=== PATIENT | male | born 1970 | race Caucasian/White ===

== ENCOUNTER → 2017-04-29 | Outpatient (CLI) | payer OTHER | LOC: FIMAGING 19:05 | PROVIDERS: ATTEND Family Medicine ==

== ENCOUNTER 2017-07-09 14:03 | Day surgery (SDC) | payer OTHER ==
[2017-07-09] MEDS ORDERED: LIDOCAINE 1% 300 MG/30 ML SDV ONE (15:05)
[2017-07-09] MEDS ORDERED: TRIAMCINOLONE ACETONIDE 200 MG/5 ML MDV IM ONE (15:05)
[2017-07-09] MEDS ORDERED: IOPAMIDOL (ISOVUE-M 300) 15 ML VIAL ONE (15:05)
[2017-07-09] MEDS ORDERED: BUPIVACAINE 0.5% 30 ML SDV ONE (15:06)
== END 2017-07-09 15:50 | disposition home or self-care (01) ==
LOC: FIMAGING 14:03
PROVIDERS: ATTEND Physical Medicine & Rehabilitation
PROC: 3E0S3BZ Introduction of Anesthetic Agent into Epidural Space, Percutaneous Approach (ICD-10-PCS; principal; 2017-07-09)
PROC: 3E0S33Z Introduction of Anti-inflammatory into Epidural Space, Percutaneous Approach (ICD-10-PCS; principal; 2017-07-09)
DX: M54.16 Radiculopathy, lumbar region (principal); M51.37 Other intervertebral disc degeneration, lumbosacral region; R55 Syncope and collapse
CPT/HCPCS: J3301; Q9967

== ENCOUNTER 2017-10-16 14:10 | Emergency (ER) | payer OTHER ==
--- NOTE | 2017-10-16 14:26 | CPEKG ---
Heart Rate: 53 RR Interval: 1132 P-R Interval: 204 QRSD Interval: 102 QT Interval: 424 QTC Interval: 399 P [place]: 44 QRS [place]: 31 T Wave [place]: 31 EKG Severity - NORMAL ECG - EKG Impression: SINUS RHYTHM Electronically Signed By: Jeanie Yeboah 16-Oct-2017 23:11:58
[2017-10-16] MEDS ORDERED: NS 1,000 ML IV ONE (14:49)
[2017-10-16] MEDS ORDERED: MECLIZINE HCL 25 MG TAB PO ONE (14:50)
[2017-10-16 14:56] LABS: PLATELET COUNT 225 10^3/uL (150-400)
[2017-10-16 15:46] VITALS: PULSE 50
--- NOTE | 2017-10-16 15:59 | EDPHY ---
HPI/HX/ROS/PE/MDM Narrative: CHIEF COMPLAINT: Mild grogginess and faint feeling after palpitations HISTORY OF PRESENT ILLNESS: The patient is a 46 y/o male with a history of vasovagal attacks complaining of grogginess, feeling slightly faint, and general feeling of being "off" since an episode of heart palpitation yesterday morning. Yesterday, he was driving his daughter to school when he felt a quick palpitation in his chest yesterday. He is unsure if during the palpitation his heart was tachycardic or bradycardic. Since the episode he has felt slightly "off", with mild grogginess, slightly faint feeling, and generally "unwell". He has had similar symptoms after a vasovagal episode but his palpitation episode was not accompanied by his typical vasovagal episodes. He tried to rest yesterday but his symptoms have not improved. His symptoms are worse when sitting. He is mildly winded. He denies falling, headache, fever, chest pain, drug use, family history of cardiac issues, or abdominal or chest surgeries. No fever, chills, chest pain, shortness of breath, vomiting, diarrhea, urinary complaints, headache, lightheadedness. REVIEW OF SYSTEMS: Aside from elements discussed in the HPI, a comprehensive 10-point review of systems was reviewed and is negative. PAST MEDICAL HISTORY: Vasovagal attacks SOCIAL HISTORY: Father, at bedside, lives in [facility] VITAL SIGNS: Reviewed by me GENERAL: Well-developed, well-nourished, resting comfortably in no respiratory distress. HEENT: Atraumatic. Eyes: No icterus, no injection. Mouth: moist mucous membranes. No erythema or lesions. Neck: supple with no adenopathy. LUNGS: Clear to auscultation bilaterally, no wheezes, rhonchi or rales. CARDIAC: Regular rate and rhythm, no rubs, murmurs or gallops. ABDOMEN: Soft, nontender, nondistended, bowel sounds normal. BACK: No CVA tenderness. EXTREMITIES: No trauma. No edema. Range of motion is normal throughout. NEURO: Alert and oriented, grossly nonfocal. Finger to nose normal, heel-rogers normal. Slight nystagmus with right gaze, extinct with retest. SKIN: Warm and dry, no rash. PSYCHIATRIC: Normal mentation, no agitation. ED Course: The patient presents with mild grogginess and slightly faint feeling after an episode of palpitations yesterday. He has had similar symptoms after a vasovagal attack but denies vasovagal attack yesterday. He describes his symptoms as mild and indescribable. Plan for labs and EKG. The patient's labs are normal. EKG shows sinus rhythm. I have watched him walk and he has a normal gait and normal neuro exam. I reassessed this patient and informed him of the results of his workup. I feel he can be released safely. I have advised him to try meclizine and follow-up with his PCP for a Holter monitor. The patient agrees to this course of action. MDM: Diff dx of this patients symptoms complex was considered including but not limited to cardiac arrhythmias, bradycardia, hypotension, dehydration, anemia, vagal effects, medication effects, anxiety, vertigo, cva or tia. - Data Points Laboratory Results: Laboratory Results 10/16/17 14:24 10/16/17 14:24 Medications Given: Discontinued Medications Sodium Chloride (Ns) 1,000 mls @ 0 mls/hr IV ONCE ONE; Wide Open PRN Reason: Protocol Stop: 10/16/17 14:50 Last Admin: 10/16/17 15:03 Dose: 1,000 mls Meclizine HCl (Meclizine Hcl) 25 mg PO EDNOW ONE Stop: 10/16/17 14:51 Last Admin: 10/16/17 15:03 Dose: 25 mg General Time Seen by Provider: 10/16/17 14:23 Initial Vital Signs: Initial Vital Signs Temperature (C) 37.0 C 10/16/17 14:12 Heart Rate 55 L 10/16/17 14:12 Respiratory Rate 16 10/16/17 14:12 Blood Pressure 121/75 H 10/16/17 14:12 O2 Sat (%) 98 10/16/17 14:12 O2 Delivery Mode Room Air Allergies/Adverse Reactions: No Known Allergies Allergy (Verified 10/16/17 14:15) Home Medications: Medication Instructions Recorded NK [No Known Home Meds] 10/16/17 Departure - Departure Disposition: Home, Routine, Self-Care Clinical Impression: Palpitation Condition: Good Instructions: Heart Palpitations (ED) Additional Instructions: 1. Continue resting and drinking lots of fluids. Consider taking meclizine which is available [id number] if you feel like your symptoms are related to vertigo or a spinning sensation. 2. Follow-up with your primary care provider for a Holter monitor and further evaluation. Be sure she knows you were seen in the ED and may potentially have a prolonged vagal tone. 3. Return to the ED for any worsening of condition. Referrals: Sherry Thibodeaux MD [Primary Care Provider] - As per Instructions Report Scribed for: Jeanie Yeboah Report Scribed by: Lisa Cuevas Date of Report: 10/16/17 Time of Report: 16:04 Physician Review and Approval Statement: Portions of this note were transcribed by a medical research scientist. I personally performed a history, physical exam, medical decision making, and confirmed accuracy of information the transcribed note.
[2017-10-16 16:19] VITALS: BP 132/77; RESP 14; TEMP 97.5; O2SAT 97
== END 2017-10-16 16:19 | disposition home or self-care (01) ==
DX: R00.2 Palpitations (principal); E86.9 Volume depletion, unspecified